=== PATIENT | male | born 1965 ===

== ENCOUNTER 2018-11-12 14:16 | Outpatient (CLI) | payer OTHER ==
[~2018-11-12] VITALS: Ht 175.3 cm; Wt 91.6 kg
== END 2018-11-12 14:35 | disposition home or self-care (01) ==
LOC: OFIC 805 14:16
DX: R09.81 Nasal congestion (principal); J30.89 Other allergic rhinitis; H60.599 Other noninfective acute otitis externa, unspecified ear; G47.33 Obstructive sleep apnea (adult) (pediatric); K21.0 Gastro-esophageal reflux disease with esophagitis

== ENCOUNTER 2019-04-15 16:34 | Outpatient (CLI) | payer OTHER | END 2019-04-15 16:46 | disposition home or self-care (01) | LOC: RAD 16:34 → LAB 16:34 → RAD 16:46 | DX: J98.01 Acute bronchospasm (principal) ==